=== PATIENT | female | born 1965 | race Caucasian/White ===

== ENCOUNTER 2020-08-06 10:38 | Emergency (ER) | payer OTHER ==
[~2020-08-06] VITALS: Ht 157.5 cm; Wt 75.0 kg
[2020-08-06] MEDS ORDERED: morphine 4 MG/ML inj SYRINge IV ONE ×2 (11:35→15:15)
[2020-08-06] MEDS ORDERED: ondansetron/PF 4mg/2ml inj IV ONE (11:35)
[2020-08-06] MEDS ORDERED: propofol 10mg/ml 20ml vial IV ONE (11:55)
--- NOTE | 2020-08-06 12:19 | NUR ---
BEGIN PROCEDURE WITH TIME OUT. RT, DR LARSEN, MARIBEL EDWARDS, RN MANE AND ORTHOTEC AT BEDSIDE FOR PROCEDURE.
[2020-08-06] MEDS ORDERED: oxyCODONE/APAP 5-325mg tablet PO ONE (13:15)
--- NOTE | 2020-08-06 14:11 | NUR ---
PT TAKEN TO CT VIA GURNEY BY TECH.
[2020-08-06] MEDS ORDERED: OXYC-145 PO (14:46)
[2020-08-06] MEDS ORDERED: ONDA4TAB6 PO (14:46)
--- NOTE | 2020-08-06 15:29 | NUR ---
PT IS GOING TO GO TO CT AGAIN. PT GIVEN PAIN MEDS PRIOR TO GOING.
[2020-08-06 15:59] VITALS: BP 139/82
== END 2020-08-06 16:07 | disposition home or self-care (01) ==
LOC: ER 10:38
DX: S53.104A Unspecified dislocation of right ulnohumeral joint, initial encounter (principal); S42.431A Displaced fracture (avulsion) of lateral epicondyle of right humerus, initial encounter for closed fracture; M25.511 Pain in right shoulder; M25.521 Pain in right elbow; Z79.899 Other long term (current) drug therapy; W19.XXXA Unspecified fall, initial encounter; Y93.89 Activity, other specified; Y92.89 Other specified places as the place of occurrence of the external cause; Y99.8 Other external cause status
CPT/HCPCS: 24600; 73020; 73070; 73200; 94799; 96374; 96375; 96376; 99152; 99153; 99285; J2270; J2405; 94760